=== PATIENT | female | born 1980 | race Caucasian/White ===

== ENCOUNTER → 2018-06-06 | Outpatient (CLI) | payer BC ==
--- NOTE | 2018-06-06 13:53 | RAD ---
Examination: VENOUS LOWER EXTREMITY RIGHT History: Right leg swelling for the past 4 days COMPARISON/CORRELATION: None FINDINGS: Right lower extremity duplex venous ultrasound exam was performed. Grayscale, color Doppler, and spectral Doppler imaging was performed. Compression and augmentation was performed. The right common femoral vein, superficial femoral vein, popliteal vein, and greater saphenous vein are normal with no evidence of deep venous thrombus. Visualized right calf veins are unremarkable. Left common femoral vein is unremarkable Normal compressibility and augmentation is evident. IMPRESSION: Normal right lower extremity duplex ultrasound exam. No evidence of deep venous thrombus involving the right lower extremity. Electronically signed by: Escobar Mercado MD (06/06/2018 1:50 PM) [facility]
== END | disposition home or self-care (01) ==
LOC: US 11:59
PROVIDERS: ATTEND Registered Nurse
DX: M79.89 Other specified soft tissue disorders (principal)
CPT/HCPCS: 93971

== ENCOUNTER → 2019-10-14 | Outpatient (CLI) | payer BC ==
--- NOTE | 2019-10-14 16:55 | RAD ---
PROCEDURE: ABDOMEN SUPINE UPRIGHT CLINICAL INDICATION / HISTORY: Reason: ABDOMEN PAIN / Spl. Instructions: / History: . TECHNIQUE: Supine and upright AP images of the abdomen was obtained. COMPARISON: None FINDINGS: The lung bases are clear. A nonobstructive bowel gas pattern is present. No organomegaly or pathologic calcifications are identified. No acute osseous abnormality. IMPRESSION: No acute abdominal process. Electronically signed by: Randal Alcazar MD (10/14/2019 4:53 PM) [id number]
== END | disposition home or self-care (01) ==
LOC: PMG 15:39
PROVIDERS: ATTEND Physician Assistant
DX: R11.2 Nausea with vomiting, unspecified (principal); R14.3 Flatulence
CPT/HCPCS: 74019

== ENCOUNTER 2020-10-21 13:02 | Emergency (ER) | payer BC, OTHER ==
[~2020-10-21] VITALS: Ht 170.2 cm; Wt 121.8 kg
[2020-10-21] MEDS ORDERED: KETOROLAC 15 MG/ML VIAL. IVP ONE (14:15)
[2020-10-21] MEDS ORDERED: IV NORMAL SALINE 1,000ML 1,000 ML IV ONE (14:15)
[2020-10-21] MEDS ORDERED: diphenhydrAMINE 50 MG/ML VIAL IVP ONE (14:15)
[2020-10-21] MEDS ORDERED: PROCHLORPERAZINE 10 MG/2 ML VIAL. IV ONE (14:15)
--- NOTE | 2020-10-21 14:18 | RAD ---
INDICATION: Reason: lightheaded, numbness / Spl. Instructions: / History: COMPARISON: None. TECHNIQUE: Axial CT images obtained through the head without intravenous contrast. One or more of the following individualized dose reduction techniques were utilized for this examinat ion: 1. Automated exposure control; 2. Adjustment of the mA and/or kV according to patient size; 3 . Use of iterative reconstruction technique. FINDINGS: No intracranial hemorrhage. No significant midline shift. Ventricles and sulci are unremarkable. No acute osseous abnormality. IMPRESSION: * No acute intracranial hemorrhage. Electronically signed by: Gagan Gaines MD (10/21/2020 2:16 PM) [id number]
--- NOTE | 2020-10-21 14:19 | PHYS DOC ---
Past History Additional Past Medical Histor: vertigo Past Surgical History: Other Additional Past Surgical Histo: leg surgery Alcohol Use: Rarely General Adult EDM: Chief Complaint: MULTIPLE COMPLAINTS HPI: HPI: Patient is a 39-year-old female being seen in the ER for dizziness and intermittent facial numbness x3 weeks. Patient states she has a history of vertigo and she takes 25 mg of meclizine 3 times a day but this is not improving her symptoms. Patient is also reporting a generalized headache. She denies nausea, vomiting, vision changes. She rates her head pain 4 out of 10. Patient's blood pressure was elevated in the ER. She does not have a history of hypertension. Review of Systems: Review of Systems: 14 body systems of the review of systems have been reviewed. See HPI for pertinent positive and negative responses, otherwise all other systems are negative, nonpertinent or noncontributory Current Medications: Current Meds: Current Medications Medications (Trade) Dose Ordered Sig/Lurdes Start Time Stop Time Status Last Admin Dose Admin Diphenhydramine HCl (Benadryl) 25 mg 1X ONCE 10/21/20 14:15 10/21/20 14:16 DC Ketorolac Tromethamine (Toradol 15mg Vial) 15 mg 1X ONCE 10/21/20 14:15 10/21/20 14:16 DC Prochlorperazine Edisylate (Compazine) 10 mg 1X ONCE 10/21/20 14:15 10/21/20 14:16 DC Sodium Chloride 1,000 ml @ 1,000 mls/hr 1X ONCE 10/21/20 14:15 10/21/20 15:14 Allergies: Allergies: Allergies Coded Allergies Type Severity Reaction Last Updated Verified No Known Drug Allergies 10/21/20 No Physical Exam: PE: Constitutional: Well developed, well nourished, no acute distress, non-toxic appearance. [] HENT: Normocephalic, atraumatic, bilateral external ears normal, oropharynx moist, no oral exudates, nose normal. [] Eyes: PERRLA, EOMI, 4 mm pupils bilaterally conjunctiva normal, no dizziness noted with extraocular eye movements, no discharge. [] Neck: Normal range of motion, no stridor Cardiovascular:Heart rate regular rhythm, no murmur [] Lungs & Thorax: Bilateral breath sounds clear to auscultation [] Abdomen: Bowel sounds normal, soft, no tenderness, no masses, no pulsatile masses. [] Skin: Warm, dry, no erythema, no rash. [] Back: Normal range of motion Extremities: No tenderness, no cyanosis, no clubbing, ROM intact, no edema. [] Neurologic: Alert and oriented X 3, normal motor function, normal sensory function, no focal deficits noted, patient able to move all 4 extremities equally, equal strengths, no pronator drift, no slurred speech or speech changes, dizziness with horizontal head movements, sensation equally to both sides of face, sensation intact.. [] Psychologic: Affect normal, judgement normal, mood normal. [] Current Patient Data: Labs: Laboratory Tests Test 10/21/20 14:21 10/21/20 14:25 Glucose (Fingerstick) 90 mg/dL White Blood Count 8.1 x10^3/uL Red Blood Count 4.95 x10^6/uL Hemoglobin 15.2 g/dL Hematocrit 44.8 % Mean Corpuscular Volume 91 fL Mean Corpuscular Hemoglobin 31 pg Mean Corpuscular Hemoglobin Concent 34 g/dL Red Cell Distribution Width 14.4 % Platelet Count 264 x10^3/uL Neutrophils (%) (Auto) 54 % Lymphocytes (%) (Auto) 37 % Monocytes (%) (Auto) 5 % Eosinophils (%) (Auto) 3 % Basophils (%) (Auto) 1 % Neutrophils # (Auto) 4.4 x10^3uL Lymphocytes # (Auto) 3.0 x10^3/uL Monocytes # (Auto) 0.4 x10^3/uL Eosinophils # (Auto) 0.2 x10^3/uL Basophils # (Auto) 0.1 x10^3/uL Sodium Level 138 mmol/L Potassium Level 4.2 mmol/L Chloride Level 103 mmol/L Carbon Dioxide Level 25 mmol/L Anion Gap 10 Blood Urea Nitrogen 5 mg/dL Creatinine 0.6 mg/dL Estimated GFR (Cockcroft-Gault) 110.2 BUN/Creatinine Ratio 8 Glucose Level 90 mg/dL Calcium Level 9.2 mg/dL Total Bilirubin 0.4 mg/dL Aspartate Amino Transf (AST/SGOT) 20 U/L Alanine Aminotransferase (ALT/SGPT) 31 U/L Alkaline Phosphatase 84 U/L Troponin I Quantitative 0.020 ng/mL Total Protein 7.7 g/dL Albumin 3.8 g/dL Albumin/Globulin Ratio 1.0 Current Medications Medications (Trade) Dose Ordered Sig/Lurdes Route PRN Reason Start Time Stop Time Status Last Admin Dose Admin Sodium Chloride 1,000 ml @ 1,000 mls/hr 1X ONCE IV 10/21/20 14:15 10/21/20 15:14 DC 10/21/20 14:23 Diphenhydramine HCl (Benadryl) 25 mg 1X ONCE IVP 10/21/20 14:15 10/21/20 14:16 DC 10/21/20 14:28 Prochlorperazine Edisylate (Compazine) 10 mg 1X ONCE IV 10/21/20 14:15 10/21/20 14:16 DC 10/21/20 14:24 Ketorolac Tromethamine (Toradol 15mg Vial) 15 mg 1X ONCE IVP 10/21/20 14:15 10/21/20 14:16 DC 10/21/20 14:30 Vital Signs: Vital Signs Date Time Temp Pulse Resp B/P (MAP) Pulse Ox O2 Delivery O2 Flow Rate FiO2 10/21/20 13:10 98.9 90 20 218/107 (144) 97 Room Air EKG: EKG: EKG performed by ER staff at 1448 shows sinus rhythm, no STEMI read by Dr. Geiger. [] Radiology/Procedures: Radiology/Procedures: PROCEDURE: CT HEAD WO CONTRAST INDICATION: Reason: lightheaded, numbness / Spl. Instructions: / History: COMPARISON: None. TECHNIQUE: Axial CT images obtained through the head without intravenous contrast. One or more of the following individualized dose reduction techniques were utilized for this examination: 1. Automated exposure control; 2. Adjustment of the mA and/or kV according to patient size; 3. Use of iterative reconstruction technique. FINDINGS: No intracranial hemorrhage. No significant midline shift. Ventricles and sulci are unremarkable. No acute osseous abnormality. IMPRESSION: * No acute intracranial hemorrhage. Electronically signed by: Alejandro Hinkle MD (10/21/2020 2:16 PM) [id number] DICTATED AND SIGNED BY: ALEJANDRO HINKLE MD DATE: 10/21/20 1411 CC: ANKUR LIZARRAGA PA; MARILYN SCHULTZ [employer] ~MTH0 0 [] Heart Score: C/O Chest Pain: No Risk Factors: Risk Factors: DM, Current or recent (<one month) smoker, HTN, HLP, family history of CAD, obesity. Risk Scores: Score 0 - 3: 2.5% MACE over next 6 weeks - Discharge Home Score 4 - 6: 20.3% MACE over next 6 weeks - Admit for Clinical Observation Score 7 - 10: 72.7% MACE over next 6 weeks - Early Invasive Strategies Course & Med Decision Making: Course & Med Decision Making Pertinent Labs and Imaging studies reviewed. (See chart for details) Patient is a 39-year-old female being seen in the ER for dizziness and intermittent facial numbness with a generalized headache for 3 weeks. Patient has a positive history of vertigo but states her meclizine is not helping her symptoms. Work-up in the ER consisted of blood work, CT scan of head, EKG, urinalysis. Patient's headache was treated with Toradol she was given Benadryl and Compazine for her vertigo symptoms. Negative hints exam. Following treatment in the ER she reports that her dizziness and her headache is improving. Upon reevaluation, patient reports that her symptoms have improved. Her blood pressure has decreased and is now 171/94. Patient advised to follow- up with her primary care provider regarding her elevated blood pressure readings in the ER. Told her she may have to keep a log of her blood pressures to bring to her primary care provider's office. She states that she follows up with Dr. López for neurology but has not seen her in a while. Follow-up information was given for Dr. Jauregui. I discussed with patient all findings and diagnostic testing as well as the need to follow-up with PCP for further evaluation and treatment or return to the ER if any new or worsening symptoms. Strict return precautions were also discussed at length. Patient voiced understanding and agreement with the plan. Patient is hemodynamically stable at the time of disposition. Dragon Disclaimer: Dragon Disclaimer: This electronic medical record was generated, in whole or in part, using a voice recognition dictation system. Departure Departure: Impression: Primary Impression: Vertigo Disposition: HOME / SELF CARE / HOMELESS Condition: GOOD Referrals: ANKUR LIZARRAGA (PCP) DAHLIA JAUREGUI MD Patient Instructions: Vertigo Additional Instructions: You were seen in the ER today for dizziness. Your work-up in the ER was unremarkable. Your CT scan of your head was negative for any acute findings. It is likely that you are suffering from vertigo. Continue taking meclizine as directed. Increase fluids and rest. You will need to follow-up with your [facility] care provider on Saturday regarding your ER visit. As we discussed, your blood pressure readings in the ER were elevated. You may need to keep a log of these blood pressures at home to bring to your primary care provider's office to determine if you need to be placed on antihypertensive medications. You stated that you follow-up with Dr. Bansal has not seen her in a long period of time. You can follow-up with Dr. Qureshi BP is a neurologist for this facility. You can call his office to set up a follow-up appointment at [phone]. If you develop worsening of your dizziness, syncope, vision changes, weakness to 1 side of your body, intractable nausea or vomiting, chest pain, shortness of breath severe headache please return to the ER. EMERGENCY DEPARTMENT GENERAL DISCHARGE INSTRUCTIONS Thank you for coming to [facility] (ED) today and trusting us with you care. We trust that you had a positivie experience in our Emergency Department. If you wish to speak to the department management, you may call the director at [phone]. YOUR FOLLOW UP INSTRUCTIONS ARE FOLLOWS: 1. Do you have a private Doctor? If you do not have a private doctor, please ask for a resource list of physicians or clinics that may be able to assist you with follow up care. 2. The Emergency Physician has interpreted your x-rays. The X-Ray specialist will also review them. If there is a change in the findings, you will be notified in 48 hours when at all possible. 3. A lab test or culture has been done, your results will be reviewed and you will be notified if you need a change in treatment. ADDITIONAL INSTRUCTIONS AND INFORMATION: 1. Your care today has been supervised by a physician who is specially trained in emergency care. Many problems require more than one evaluation for a complete diagnosis and treatment. We recommend that you schedule your follow up appointment as recommended to ensure complete treatment of you illness or injury. If you are unable to obtain follow up care and continue to have a problem, or if your condition worsens, we recommend that you return to the ED. 2. We are not able to safely determine your condition over the phone nor are we able to give sound medical advice over the phone. For these safety reasons, if you call for medical advice we will ask you to come to the ED for further evaluation. 3. If you have any questions regarding these discharge instructions please call the ED at [phone]. SAFETY INFORMATION: In the interest of safety, wellness, and injury prevention; we encourage you to wear your sealbelt, if you smoke; quite smoking, and we encourage family to use a prot ective helmet for bicycling and other sporting events that present an increased risk for head injury. IF YOUR SYMPTOMS WORSEN OR NEW SYMPTOMS DEVELOP, OR YOU HAVE CONCERNS ABOUT YOUR CONDITION; OR IF YOUR CONDITION WORSENS WHILE YOU ARE WAITING FOR YOUR FOLLOW UP APPOINTMENT; EITHER CONTACT YOUR PRIMARY CARE DOCTOR, THE PHYSICIAN WHOSE NAME AND NUMBER YOU WERE GIVEN, OR RETURN TO THE ED IMMEDIATELY. MARILYN SCHULTZ APRN Oct 21, 2020 14:19
[2020-10-21 14:58] LABS: BASO # 0.1 x10^3/uL (0.0-0.2); BASO % 1 % (0-3); EOS # 0.2 x10^3/uL (0.0-0.7); EOS % 3 % (0-3); HEMATOCRIT 44.8 % (36.0-47.0); HEMOGLOBIN 15.2 g/dL (12.0-15.5); LYMPH % 37 % (24-48); MEAN CORPUSCULAR HEMOGLOBIN 31 pg (25-35); MEAN CORPUSCULAR HGB CONC 34 g/dL (31-37); MEAN CORPUSCULAR VOLUME 91 fL (79-100); MONO # 0.4 x10^3/uL (0.0-1.1); MONO % 5 % (0-9); NEUT # 4.4 x10^3uL (1.8-7.7); NEUT % 54 % (31-73); PLATELET COUNT 264 x10^3/uL (140-400); RED BLOOD COUNT 4.95 x10^6/uL (3.50-5.40); RED CELL DISTRIBUTION WIDTH 14.4 % (11.5-14.5); WHITE BLOOD COUNT 8.1 x10^3/uL (4.0-11.0)
[2020-10-21 15:04] LABS: CALCIUM 9.2 mg/dL (8.5-10.1); CREATININE 0.6 mg/dL (0.6-1.0); GFR 110.2; POTASSIUM 4.2 mmol/L (3.5-5.1)
[2020-10-21 15:10] LABS: ALBUMIN 3.8 g/dL (3.4-5.0); TOTAL BILIRUBIN 0.4 mg/dL (0.2-1.0); TOTAL PROTEIN 7.7 g/dL (6.4-8.2)
--- NOTE | 2020-10-21 15:19 | EKG ---
[address] [address] Test Date: 2020-10-21 Test Time: 14:48:46 Pat Name: NOMAN PIZARRO Department: Room: Gender: F Medical Assembly: HETAL : 1980 Requested By: MARILYN SCHULTZ Order Number: [id number] Reading MD: Measurements Intervals [place] Rate: 73 P: 55 MD: 142 QRS: 67 QRSD: 80 T: 19 QT: 422 QTc: 469 Interpretive Statements SINUS RHYTHM NORMAL ECG RI6.02 No previous ECG available for comparison
[2020-10-21 15:29] VITALS: BP 171/94
[2020-10-21 16:48] LABS: BILIRUBIN,URINE NEG (NEG); CLARITY,URINE CLEAR; COLOR,URINE YELLOW; GLUCOSE,URINE NEG (NEG)
[2020-10-21 16:49] LABS: BACTERIA,URINE 0 /HPF (0-FEW); NITRITE,URINE NEG (NEG); RBC,URINE OCC /HPF (0-2); SQUAMOUS EPITHELIAL CELL,UR MOD /LPF; UROBILINOGEN,URINE 0.2 mg/dL (0.2 mg/dL); WBC,URINE OCC /HPF (0-4)
== END 2020-10-21 15:53 | disposition home or self-care (01) ==
LOC: ER 13:02
DX: R42 Dizziness and giddiness (principal); R51.9 Headache, unspecified; R20.0 Anesthesia of skin
CPT/HCPCS: 36415; 70450; 80053; 81001; 82947; 84484; 85025; 93005; 96361; 96374; 96375; 99285; J0780; J1200; J1885; J7030